=== PATIENT | female | born 1950 | race Caucasian/White ===

== ENCOUNTER 2023-01-27 04:50 | Emergency (ER) | payer OTHER ==
--- OUTSIDE RECORDS SUMMARY | 2023-01-27 04:54 | XMS REPORT | Continuity of Care Document ---
:1950 Author Organization [facility] t Address [address] [facility] [address] [place] [id number] Care Team Providers Name Role Phone Asked, No Pcp Primary Care Physician Unavailable Jose Attending Clinician Unavailable ELIO WALLACE Attending Clinician Unavailable Ike Galeano MD Attending Clinician Jose Admitting Clinician Unavailable Payers Payer Name Policy Type Policy Number Effective Date Expiration Date Yoana GRIFFITH (MEDICARE [id number] 2022 REPLACEMENT PPO) 00:00:00 Problems Condition Condition Condition Status Onset Resolution Last Treating Co mments Source Name Details Category Date Date Treatment Clinician Date Pain of Pain of Problem Active Rita right knee Right Knee 3-21 Or thope joint Joint 00:00: dic 00 Sports Medicin e Osteoarthr Osteoarthr Problem Active A zalea itis of itis of 3-21 Orthope right knee Right Knee 00:00: di c joint Joint 00 Sports Medicin e Patellofem Patellofem Problem Active A zalea oral oral 9-02 Orthope osteoarthr Osteoarthr 00:00: di c itis itis 00 Sports Medicin e Allergies, Adverse Reactions, Alerts This patient has no known allergies or adverse reactions. Social History Social Habit Start Date Stop Date Quantity Comments Source Gender identity [facility] Sexual orientation Method [facility] Sex Assigned At [birth year] [facility] 00:00:00 00:00:00 Smoking Status Start Date Stop Date Source Never Smoker Rita [facility] Tobacco smoking consumption [facility] unknown Medications Ordered Filled Start Stop Current Ordering Indication Dosage Frequency Signature Comments Components Source Medication Medication Date Date Medication? Clinician (SIG) Name Name atorvastati atorvastati No atorvastat Rita n 20 mg n 20 mg in 20 mg Ortho pe tablet TAKE tablet TAKE tablet dic 1 TABLET BY 1 TABLET BY TAKE 1 Sports MOUTH EVERY MOUTH EVERY TABLET BY Medicin DAY DAY MOUTH e EVERY DAY celecoxib celecoxib No celecoxib Rita 200 mg 200 mg 200 mg Orthope capsule capsule capsule dic TAKE 1 TAKE 1 TAKE 1 Sports CAPSULE BY CAPSULE BY CAPSULE BY Medicin MOUTH EVERY MOUTH EVERY MOUTH e DAY WITH DAY WITH EVERY DAY FOOD FOOD WITH FOOD levothyroxi levothyroxi No levothyrox Rita ne 112 mcg ne 112 mcg ine 112 Orthope tablet TAKE tablet TAKE mcg tablet dic 1 TABLET BY 1 TABLET BY TAKE 1 Sports MOUTH EVERY MOUTH EVERY TABLET BY Medicin MORNING ON MORNING ON MOUTH e AN EMPTY AN EMPTY EVERY STOMACH STOMACH MORNING ON AN EMPTY STOMACH spironolact spironolact No spironolac Rita one 25 mg one 25 mg tone 25 mg Orthope tablet TAKE tablet TAKE tablet dic 1 TABLET BY 1 TABLET BY TAKE 1 Sports MOUTH EVERY MOUTH EVERY TABLET BY Medicin DAY MOUTH e EVERY DAY Vital Signs Vital Name Observation Time Observation Value Comments Source Height 2022-11-16 00:00:00 64 [in_i] Rita O rthopedic Sports Medicine BMI (Body Mass 2022-11-16 00:00:00 30.4 kg/m2 Rita Orthopedic Index) Sports Medicine Body Weight 2022-11-16 00:00:00 177 [lb_av] Rita [facility] r[facility]opedic Sports Medicine Procedures Procedure Date / Time Performing Clinician Source Performed XR, knee, 1 or 2 view 2022-11-16 00:00:00 Rita [facility] US VASCULAR SCREENING 2022-06-29 20:21:34 Ike Galeano [facility] HEART SCAN PLUS CT HEART SCAN W 2022-06-29 19:30:43 Waleska, Ike [facility] PH[facility]IC[facility] ORDER Appendectomy Rita Orthoprae mohan Sports Medicine Carpal Tunnel Surgery Rita Ort hopedic Sports Medicine Hand Surgery Rita Orthopedi kimberlee [facility] Plan of Care Planned Activity Planned Date Details Comments Source Future Scheduled 2023-01-27 Hepatitis C screening [facility] Test 04:53:49 (procedure) [code = 828075521] Future Scheduled 2023-01-27 BREAST CANCER [facility] Test 04:53:49 SCREENING [code = BREAST CANCER SCREENING] Future Scheduled 2023-01-27 COLONOSCOPY SCREENING [facility] Test 04:53:49 [code = COLONOSCOPY SCREENING] Future Scheduled 2023-01-27 SHINGLES VACCINES (1 Met [facility] Test 04:53:49 of 2) [code = SHINGLES VACCINES (1 of 2)] Future Scheduled 2023-01-27 65+ PNEUMOCOCCAL [facility] Test 04:53:49 VACCINE (2 - PPSV23 if available, else PCV20) [code = 65+ PNEUMOCOCCAL VACCINE (2 - PPSV23 if available, else PCV20)] Future Scheduled 2023-01-27 INFLUENZA VACCINE Method [facility] Test 04:53:49 [code = INFLUENZA VACCINE] Encounters Start End Encounter Admission Attending Care Care Encounter Source Date/Time Date/Time Type Type Clinicians Facility Department ID 2022-11-16 2022-11-16 Outpatient FOG_Burke_R AOSM AO [id number] Rita 00:00:00 00:00:00 Nicole [id number] Ortho pe dic Sports Medicin e 2022-11-16 2022-11-16 Jennifer H AO [place] - Ortho Rita 00:00:00 00:00:00 Nery Bates PA: [id number] FOG_Ofc dic [facility], Medici n [address], [place] [address] , Ph. [phone] 2022-11-15 2022-11-15 Outpatient FOG_Burke_R AOSM AOSM [id number] Rita 00:00:00 00:00:00 Nicole [id number] Ortho pe dic Sports Medicin e 2022-10-26 2022-10-26 Outpatient FOG_Burke_R AOSM AOSM [id number] Rita 00:00:00 00:00:00 Nicole [id number] Ortho pe dic Sports Medicin e 2022-10-26 2022-10-26 Outpatient FOG_Burke_R AOSM AOSM [id number] Rita 00:00:00 00:00:00 Nicole [id number] Ortho pe dic Sports Medicin e 2022-06-30 2022-06-30 Outpatient RODRIGO, HILDABL MHBL [id number] MHBL 08:51:00 14:33:00 ELIO 2022-06-29 2022-06-29 [facility], 1.2.840.1 [id number] Methodi 14:17:39 23:59:00 Encounter Ike [id number] 3.430.2.7 Hospit a .3.409805 l .8 2022-06-29 2022-06-29 [facility], 1.2.840.1 [id number] Methodi 14:17:21 23:59:00 Encounter Ike [id number] 3.430.2.7 Hospit a .3.101928 l .8 2022-06-29 2022-06-29 Outpatient [facility] [id number] [place] 00:00:00 00:00:00 IKE [address] 2022-06-29 2022-06-29 Outpatient [facility] [id number] [place] 00:00:00 00:00:00 IKE [address] 2022-06-29 2022-06-29 Travel 1.2.840.1 [id number] Methodi 00:00:00 00:00:[id number] 3.430.2.7 0.2.7.3.698 Ho spita .[id number] 084.8 l .8 2022-06-07 2022-06-07 Transcribe [facility] 1.2.840.1 [id number] Methodi 00:00:00 00:00:00 Orders Ike [id number] 044 3.430.2.7 Hospit a .3.369761 l .8 Results This patient has no known results.
[2023-01-27 05:25] LABS: Absolute Lymphocytes (CBC) 0.8 K/uL (0.7-4.9); MCV 88.8 fL (80-100); MPV 7.3 fL (7.6-11.3); RBC Red Blood Cell Count 4.62 M/uL (3.86-4.86)
[2023-01-27 05:26] LABS: Protime INR 1.06
[2023-01-27] MEDS ORDERED: DIPHENHYDRAMINE 25 MG TAB/CAP ONE (05:27)
[2023-01-27] MEDS ORDERED: METOCLOPRAMIDE 10 MG/2mL INJ ONE (05:27)
[2023-01-27] MEDS ORDERED: NA CHLORIDE 0.9% 500 ML ONE (05:28)
[2023-01-27] MEDS ORDERED: KETOROLAC 30 MG/ML INJ ONE (05:28)
[2023-01-27] MEDS ORDERED: IPRATROPIUM BROM 0.5MG/2.5ML ONE (05:28)
[2023-01-27] MEDS ORDERED: PROMETHAZINE 25 MG TABLET ONE (05:28)
[2023-01-27] MEDS ORDERED: CODEINE 30MG/APAP 300MG TAB ONE (05:28)
[2023-01-27] MEDS ORDERED: ALBUTEROL 2.5 MG/3 ML NEB SOL ONE (05:28)
[2023-01-27 05:51] LABS: Bilirubin Direct 0.2 mg/dL (0-0.2); Bilirubin Indirect, Calculated 0.7 mg/dL (0.2-0.8); Bilirubin Total 0.9 mg/dL (0.2-1.0); Magnesium 2.1 mg/dL (1.6-2.4); Potassium 3.9 mEq/L (3.5-5.1); Protein, Total 7.6 g/dL (6.4-8.2); Troponin High Sensitivity 4.7 pg/mL (<58.9)
[2023-01-27 05:57] LABS: SARS-CoV-2 Antigen Rapid Res Negative (Negative)
--- NOTE | 2023-01-27 06:46 | ER ---
Nurse's Notes [facility] Name: Natalee Cornejo Age: 72 yrs Sex: Female : 1950 Arrival Date: 01/27/2023 Time: 04:50 Bed 6 Private MD: Diagnosis: Acute nasopharyngitis [common cold];Acute systemic viral illness, common cold, respiratory congestion, acute viral bronchitis Presentation: 01/27 05:16 Chief complaint: Patient states: cough, headache, nasal and chest congestion that as6 started yesterday. Coronavirus screen: At this time, the client does not indicate any symptoms associated with coronavirus-19. Ebola Screen: No symptoms or risks identified at this time. Initial Sepsis Screen: Does the patient meet any 2 criteria? No. Patient's initial sepsis screen is negative. Does the patient have a suspected source of infection? No. Patient's initial sepsis screen is negative. Risk Assessment: Do you want to hurt yourself or someone else? Patient reports no desire to harm self or others. Onset of symptoms was January 26, 2023. 05:16 Acuity: MARLEN 3 as6 05:16 Method Of Arrival: Ambulatory as6 Triage Assessment: 06:08 Headache History: Denies prior headaches. General: Appears uncomfortable. Pain: Pain rv currently is 8 out of 10 on a pain scale. Pain began suddenly. 06:08 Pain: Also complains of no other associated symptoms. rv Historical: - Allergies: 05:16 No Known Allergies; as6 - PMHx: 05:16 Hypothyroidism; Hypercholesterolemia; Anxiety; as6 - PSHx: 05:16 Appendectomy; as6 - Immunization history:: Client reports receiving the 2nd dose of the Covid vaccine. - Social history:: Smoking status: Patient denies any tobacco usage or history of. - Family history:: not pertinent. Screenin:34 [facility] ED Fall Risk Assessment (Adult) History of falling in the last 3 months, aa9 including since admission No falls in past 3 months (0 pts) Confusion or Disorientation No (0 pts) Intoxicated or Sedated No (0 pts) Impaired Gait No (0 pts) Mobility Assist Device Used No (0 pt) Altered Elimination No (0 pt) Score/Fall Risk Level 0 - 2 = Low Risk Oriented to surroundings, Maintained a safe environment, Educated pt \T\ family on fall prevention, incl call for assistance when getting out of bed. Abuse screen: Denies threats or abuse. Denies injuries from another. Nutritional screening: No deficits noted. Tuberculosis screening: No symptoms or risk factors identified. Assessment: 05:32 General: Appears comfortable, Behavior is calm, cooperative. Pain: Complains of pain in aa9 chest. Neuro: Level of Consciousness is awake, alert, obeys commands, Oriented to person, place, time, situation. Cardiovascular: Patient's skin is warm and dry. Respiratory: Reports shortness of breath on exertion cough that is non-productive. GI: No signs and/or symptoms were reported involving the gastrointestinal system. : No signs and/or symptoms were reported regarding the genitourinary system. EENT: Eyes are tearing on right outer canthus and left outer canthus Nares with drainage noted bilaterally. Derm: Skin is intact, is fragile, is thin. Vital Signs: 05:16 BP 142 / 60; Pulse 72; Resp 18 S; Temp 98.9(O); Pulse Ox 97% on R/A; Weight 77.11 kg as6 (R); Height 5 ft. 4 in. (R); Pain 3/10; 05:33 BP 137 / 63; Pulse 70; Resp 18 S; Pulse Ox 100% on Nebulizer Mask; aa9 06:04 BP 136 / 55; Pulse 73; Resp 18; Pulse Ox 97% on R/A; rv 05:16 Body Mass Index 29.18 (77.11 kg, 162.56 cm) as6 05:16 Pain Scale: Adult as6 Collins Coma Score: 05:15 Eye Response: spontaneous(4). Motor Response: obeys commands(6). Verbal Response: sp4 oriented(5). Total: 15. 06:51 Eye Response: spontaneous(4). Motor Response: obeys commands(6). Verbal Response: rv oriented(5). Total: 15. ED Course: 04:55 Patient arrived in ED. ja2 05:03 Nilton Coello MD is Attending Physician. sp4 05:14 Inserted saline lock: 20 gauge in right antecubital area, using aseptic technique. aa9 Blood collected. 05:16 Arm band placed on. as6 05:17 Jo, Kelly, RN is Primary Nurse. aa9 05:17 Basic Metabolic Panel Sent. aa 05:17 CBC with Diff Sent. aa 05:17 LFT's Sent. aa9 05:17 Magnesium Sent. 05:17 NT PRO-BNP Sent. aa9 05:19 Triage completed. as6 05:26 XRAY Chest (1 view) In Process Unspecified. EDMS 05:33 Patient has correct armband on for positive identification. Bed in low position. Call aa9 light in reach. Side rails up X 1. Adult w/ patient. Pulse ox on. NIBP on. Warm blanket given. 06:08 No provider procedures requiring assistance completed. rv 06:55 IV discontinued, intact, bleeding controlled, No redness/swelling at site. Pressure rv dressing applied. Administered Medications: 05:24 Drug: diphenhydrAMINE PO 25 mg Route: PO; aa9 06:03 Follow up: Response: No adverse reaction; Marked relief of symptoms rv 05:24 Drug: Promethazine PO 25 mg Route: PO; aa9 06:03 Follow up: Response: No adverse reaction; Marked relief of symptoms rv 05:30 Drug: metoCLOPramide IVP 10 mg Route: IVP; Site: right antecubital; aa9 06:03 Follow up: Response: No adverse reaction; Marked relief of symptoms rv 05:31 Drug: NS 0.9% IV 500 ml Route: IV; Rate: bolus; Site: right antecubital; aa9 06:03 Follow up: IV Status: Completed infusion; IV Intake: 500ml rv 05:31 Drug: Acetaminophen-Codeine PO (300 mg-30 mg) 2 tabs Route: PO; aa9 06:03 Follow up: Response: No adverse reaction; Marked relief of symptoms; RASS: Alert and rv Calm (0) 05:32 Drug: DuoNeb Nebulize (3:1) (2.5 mg - 0.5 mg) 3 ml Route: Nebulizer; aa9 06:03 Follow up: Response: No adverse reaction; Marked relief of symptoms rv 05:32 Drug: Ketorolac IVP 30 mg Route: IVP; Site: right antecubital; aa9 06:03 Follow up: Response: No adverse reaction; Marked relief of symptoms rv Medication: 06:08 VIS not applicable for this client. rv Intake: 06:03 IV: 500ml; Total: 500ml. rv Outcome: 06:46 Discharge ordered by . sp4 06:52 Discharged to home ambulatory, with family. rv 06:52 Condition: good 06:52 Discharge instructions given to patient, family, Instructed on discharge instructions, follow up and referral plans. medication usage, Demonstrated understanding of instructions, follow-up care, medications, Prescriptions given X 4. 06:55 Patient left the ED. rv Signatures: Dispatcher [employer] EDMS Kosta Schroeder RN RN rv Lucille Saab Ashby, RN RN as6 Kelly Jo RN RN aa9 Nilton Coello MD MD sp4
--- NOTE | 2023-01-27 06:46 | EDPHYS ---
Physician Documentation [facility] Name: Natalee Cornejo Age: 72 yrs Sex: Female : 1950 Arrival Date: 01/27/2023 Time: 04:50 Bed 6 Private MD: ED Physician Nilton Coello HPI: 01/27 05:03 This 72 yrs old Female presents to ER via Unassigned with complaints of sp4 Headache, Chest Pain, Breathing Difficulty, Fever, Sinus Pain. 05:15 72-year-old female with past medical history of hypothyroidism presents with acute sp4 onset of cough starting yesterday associated with difficulty breathing, chest discomfort. Subjective fever as well also nasal congestion and moderate headache. Patient states she was vaccinated for coronavirus in the last 12 months. Patient also takes paroxetine and spironolactone at home. Also atorvastatin. Just to recap patient's symptoms include cough, congestion, difficulty breathing, chest discomfort, subjective fever, and headache. . Historical: - Allergies: 05:16 No Known Allergies; as6 - PMHx: 05:16 Hypothyroidism; Hypercholesterolemia; Anxiety; as6 - PSHx: 05:16 Appendectomy; as6 - Immunization history:: Client reports receiving the 2nd dose of the Covid vaccine. - Social history:: Smoking status: Patient denies any tobacco usage or history of. - Family history:: not pertinent. ROS: 05:15 Constitutional: Negative for chills, and weight loss, positive for subjective fever, sp4 Eyes: Negative for injury, pain, redness, and discharge, ENT: Negative for injury, pain, and discharge, positive for nasal congestion Neck: Negative for injury, pain, and swelling, Cardiovascular: Negative for palpitations, and edema, positive for chest tightness Respiratory: Negative for, wheezing, and pleuritic chest pain, positive for nonproductive cough and shortness of breath Abdomen/GI: Negative for abdominal pain, nausea, vomiting, diarrhea, and constipation, Back: Negative for injury and pain, : Negative for injury, bleeding, discharge, and swelling, MS/Extremity: Negative for injury and deformity, Skin: Negative for injury, rash, and discoloration, Neuro: Negative for headache, weakness, numbness, tingling, and seizure, Psych: Negative for depression, anxiety, Allergy/Immunology: Negative for hives, rash, and allergies Endocrine: Negative for neck swelling, polydipsia, polyuria, polyphagia, and weight changes Hematologic/Lymphatic: Negative for swollen nodes, abnormal bleeding, and unusual bruising Exam: 05:15 Constitutional: This is a well developed, well nourished patient who is awake, alert, sp4 and in no acute distress. Anxious appearing nonproductive cough on exam Head/Face: Normocephalic, atraumatic. Eyes: Pupils equal round and reactive to light, extra-ocular motions intact. Lids and lashes normal. Conjunctiva and sclera are not injected. Cornea within normal limits. Periorbital areas with no swelling, redness, or edema. ENT: Nares patent. No nasal discharge, no septal abnormalities noted. Tympanic membranes are normal and external auditory canals are clear. Oropharynx with redness, no swelling, or masses, exudates, or evidence of obstruction, uvula midline. Mucous membranes moist. Bilateral pharyngeal erythema. Neck: Trachea midline, no thyromegaly or masses palpated, and no cervical lymphadenopathy. Supple, full range of motion without nuchal rigidity, or vertebral point tenderness. No Meningismus. Chest/axilla: Normal chest wall appearance and motion. Nontender with no deformity. No lesions are appreciated. Cardiovascular: Regular rate and rhythm with a normal S1 and S2. No gallops, murmurs, or rubs. Normal PMI, no JVD. No pulse deficits. Respiratory: Lungs have equal breath sounds bilaterally, clear to auscultation and percussion. No rales, rhonchi or wheezes noted. No increased work of breathing, no retractions or nasal flaring. Abdomen/GI: Soft, non-tender, with normal bowel sounds. No distension or tympany. No guarding or rebound. No evidence of tenderness throughout. Back: No spinal tenderness. No costovertebral tenderness. Skin: Warm, dry with normal turgor. Normal color with no rashes, no lesions, and no evidence of cellulitis. MS/ Extremity: Pulses equal, no cyanosis. Neurovascular intact. Full, normal range of motion. Neuro: Awake and alert, GCS 15, oriented to person, place, time, and situation. Cranial nerves II-XII grossly intact. Motor strength 5/5 in all extremities. Sensory grossly intact. Psych: Awake, alert, with orientation to person, place and time. Behavior, mood, and affect are within normal limits 05:21 ECG was reviewed by the Attending Physician. EKG reveals normal sinus rhythm with a sp4 rate of 73, EKG time 0505, no ectopy, normal EKG with Vital Signs: 05:16 BP 142 / 60; Pulse 72; Resp 18 S; Temp 98.9(O); Pulse Ox 97% on R/A; Weight 77.11 kg as6 (R); Height 5 ft. 4 in. (R); Pain 3/10; 05:33 BP 137 / 63; Pulse 70; Resp 18 S; Pulse Ox 100% on Nebulizer Mask; aa9 06:04 BP 136 / 55; Pulse 73; Resp 18; Pulse Ox 97% on R/A; rv 05:16 Body Mass Index 29.18 (77.11 kg, 162.56 cm) as6 05:16 Pain Scale: Adult as6 Petra Coma Score: 05:15 Eye Response: spontaneous(4). Motor Response: obeys commands(6). Verbal Response: sp4 oriented(5). Total: 15. 06:51 Eye Response: spontaneous(4). Motor Response: obeys commands(6). Verbal Response: rv oriented(5). Total: 15. MDM: 05:15 Differential diagnosis: cluster headache, migraine, otitis, sinusitis, tension sp4 headache, vasomotor headache, Acute headache secondary to viral illness. Data reviewed: vital signs, nurses notes, old medical records, lab test result(s), cardiac enzymes, CBC, electrolytes, Flu: negative hepatic panel, urinalysis, EKG, radiologic studies, plain films. Consideration of Admission/Observation Escalation of care including admission/observation considered. 05:21 Patient medically screened. sp4 06:43 ED course: Patient was given certain medicines to relieve congestion cough and body sp4 aches and headache. Patient states she feels better.. She will be advised to go home and get some rest. Bedrest advised for the next 3 days, fluid intake at home liberally. Phenergan as needed for nausea, Tylenol as needed for body aches, dextromethorphan as needed for cough, Benadryl before bedtime to help with congestion. . 06:51 ED course: Chest x-ray is clear today EKG is unremarkable, and labs today are sp4 unremarkable. Negative COVID and negative influenza. 01/27 05:03 Order name: Basic Metabolic Panel; Complete Time: 06:39 sp4 01/27 05:03 Order name: CBC with Diff; Complete Time: 06:39 sp4 01/27 05:03 Order name: LFT's; Complete Time: 06:39 sp4 01/27 05:03 Order name: Magnesium; Complete Time: 06:39 sp4 01/27 05:03 Order name: NT PRO-BNP; Complete Time: 06:39 sp4 01/27 05:03 Order name: PT-INR; Complete Time: 06:39 sp4 01/27 05:03 Order name: Troponin HS; Complete Time: 06:39 sp4 01/27 05:03 Order name: Lipase; Complete Time: 06:39 sp4 01/27 05:10 Order name: SARS RAPID; Complete Time: 06:39 sp4 01/27 05:10 Order name: Influenza Screen (a \T\ B); Complete Time: 06:39 sp4 01/27 05:03 Order name: XRAY Chest (1 view) sp4 01/27 05:03 Order name: EKG; Complete Time: 05:04 sp4 01/27 05:03 Order name: Cardiac monitoring; Complete Time: 05:17 sp4 01/27 05:03 Order name: EKG - Nurse/Tech; Complete Time: 05:17 sp4 01/27 05:03 Order name: IV Saline Lock; Complete Time: 05:17 sp4 01/27 05:03 Order name: Labs collected and sent; Complete Time: 05:17 sp4 01/27 05:03 Order name: O2 Per Protocol; Complete Time: 05:17 sp4 01/27 05:03 Order name: O2 Sat Monitoring; Complete Time: 05:17 sp4 EC:21 Rate is 73 beats/min. Rhythm is regular, Normal Sinus Rhythm. QRS [place] is Normal. MO sp4 interval is normal. QRS interval is normal. QT interval is normal. No Q waves. T waves are Normal. No ST changes noted. Clinical impression: No evidence of ischemia. Interpreted by me. Administered Medications: 05:24 Drug: diphenhydrAMINE PO 25 mg Route: PO; aa9 06:03 Follow up: Response: No adverse reaction; Marked relief of symptoms rv 05:24 Drug: Promethazine PO 25 mg Route: PO; aa9 06:03 Follow up: Response: No adverse reaction; Marked relief of symptoms rv 05:30 Drug: metoCLOPramide IVP 10 mg Route: IVP; Site: right antecubital; aa9 06:03 Follow up: Response: No adverse reaction; Marked relief of symptoms rv 05:31 Drug: NS 0.9% IV 500 ml Route: IV; Rate: bolus; Site: right antecubital; aa9 06:03 Follow up: IV Status: Completed infusion; IV Intake: 500ml rv 05:31 Drug: Acetaminophen-Codeine PO (300 mg-30 mg) 2 tabs Route: PO; aa9 06:03 Follow up: Response: No adverse reaction; Marked relief of symptoms; RASS: Alert and rv Calm (0) 05:32 Drug: DuoNeb Nebulize (3:1) (2.5 mg - 0.5 mg) 3 ml Route: Nebulizer; aa9 06:03 Follow up: Response: No adverse reaction; Marked relief of symptoms rv 05:32 Drug: Ketorolac IVP 30 mg Route: IVP; Site: right antecubital; aa9 06:03 Follow up: Response: No adverse reaction; Marked relief of symptoms rv Disposition Summary: 01/27/23 06:46 Discharge Ordered Location: Home sp4 Problem: new sp4 Symptoms: have improved sp4 Condition: Stable sp4 Diagnosis - Acute nasopharyngitis [common cold] sp4 - Acute systemic viral illness, common cold, respiratory congestion, acute viral sp4 bronchitis Followup: sp4 - With: Private Physician - When: 7 - 10 days - Reason: Recheck today's complaints Discharge Instructions: - Discharge Summary Sheet sp4 - Cough, Adult, Lrrc-dy-Snyc sp4 Prescriptions: - dextromethorphan polistirex 30 mg/5 mL Oral suspension, extended release 12 hr - take 10 milliliter by ORAL route every 12 hours as needed for cough; 89 sp4 milliliter; Refills: 0, Product Selection Permitted - Albuterol Sulfate 2.5 mg /3 mL (0.083 %) Inhalation Solution for Nebulization - inhale 1 unit by NEBULIZATION route every 4 hours As needed Dispense 50 sp4 Respules or 2 boxes, dispense with nebulizer and adult mask.; 50 unit; Refills: 0, Product Selection Permitted - promethazine 25 mg Oral Tablet - take 1 tablet by ORAL route every 8 hours As needed PRN nausea; 30 tablet; sp4 Refills: 0, Product Selection Permitted Signatures: Dispatcher [employer] Mike Adler RN RN as6 Kelly Jo RN RN aa9 Nilton Coello MD MD sp4 Kosta Schroeder RN rv
[2023-01-27 07:32] VITALS: TEMP 98.2
[2023-01-27 07:33] VITALS: BP 128/64
[2023-01-27 07:34] VITALS: O2SAT 94
--- NOTE | 2023-01-27 12:06 | EKG ---
Test Date: 2023-01-27 Test Time: 05:05:19 Occupational Medicine Officer: RV MEASUREMENT RESULTS: Intervals: Rate: 73 HI: 128 QRSD: 90 QT: 384 QTc: 423 [place]: P: 50 HI: 128 QRS: 31 T: 58 INTERPRETIVE STATEMENTS: Normal sinus rhythm Normal ECG Compared to ECG 02/04/2005 15:30:00 Sinus bradycardia no longer present Electronically Signed On 01-27-23 12:05:49 CDT by Jacob Leung
--- NOTE | 2023-01-27 13:53 | RAD REPORT ---
EXAM DESCRIPTION: RAD - Chest Single View - 01/27/2023 5:24 am CLINICAL HISTORY: The patient is 72 years old and is Female; CHEST PAIN TECHNIQUE: Single view of the chest. COMPARISON: No relevant prior studies available. FINDINGS: Lungs: No pulmonary vascular congestion or consolidation. Pleural space: Unremarkable. No pneumothorax. Heart: Unremarkable. No cardiomegaly. Mediastinum: Unremarkable. Bones/joints: Degenerative changes in the shoulders. Vertebral osteophytes. No acute rib fracture visualized. Upper abdomen: No free air in the visualized upper abdomen. IMPRESSION: No acute cardiopulmonary process identified. Electronically signed by: Lashon Srinivasan MD 01/27/2023 5:40 AM CDT Due to temporary technical issues with the PACS/Fluency reporting system, reports are being signed by the in house radiologists without review as a courtesy to insure prompt reporting. The interpreting radiologist is fully responsible for the content of the report.
== END 2023-01-27 06:55 | disposition home or self-care (01) ==
LOC: ER 04:50
DX: J20.8 Acute bronchitis due to other specified organisms (principal); J00 Acute nasopharyngitis [common cold]; Z20.822 Contact with and (suspected) exposure to COVID-19
CPT/HCPCS: 96361; 93005; 85025; 80048; 36415; 83735; 85610; 80076; 84484; 83690; 83880; 87804 ×2; 71045; 94640; 96375; 96374; 99285; 87811; Q0169; J2765; J7613; J7644; J7040

== ENCOUNTER 2025-01-11 08:56 | Day surgery (SDC) | payer OTHER ==
[2025-01-09 16:08] LABS: Absolute Eosinophils 0.1 K/uL (0-0.5); Absolute Lymphocytes (CBC) 1.8 K/uL (0.7-4.9); Absolute Monocytes 0.5 K/uL (0.1-1.3); Absolute Neutrophil 4.1 K/uL (1.8-8.0); Basophils % 0.7 % (0-1.3); Eosinophils % 1.6 % (0-4.4); Hematocrit 39.8 % (36.0-45.0); Hemoglobin 13.6 g/dL (12.0-15.0); MCH 30.6 pg (27.0-35.0); MCHC 34.3 g/dL (32.0-36.0); MCV 89.2 fL (80-100); MPV 8.1 fL (7.6-11.3); Monocytes % 8.3 % (3.3-12.3); Neutrophils % 62.4 % (41.7-73.7); Platelets 184 thou/uL (152-406); RBC Red Blood Cell Count 4.47 M/uL (3.86-4.86); Red Cell Distribution Width 13.9 % (12.1-15.2)
[2025-01-09 16:25] LABS: Anion Gap 7.6 mEq/L (5.0-15.0); Potassium 4.6 mEq/L (3.5-5.1)
[2025-01-11] MEDS ORDERED: LIDOCAINE 2% MPF 5 ML VIAL ONE (09:53)
[2025-01-11] MEDS ORDERED: propofoL 200 MG/20 ML VIAL IV ONE (09:53)
[2025-01-11] MEDS ORDERED: ONDANSETRON 4 MG/2 ML VIAL ONE (09:53)
[2025-01-11] MEDS ORDERED: FENTANYL CITR 100 MCG/2 ML ONE (09:53)
[2025-01-11] MEDS: Ringers Lactate 1,000 ML IV ONE (10:02)
[2025-01-11] MEDS: LIDOCAINE HCL/EPINEPHRINE 20 ML MDV ONE (10:17)
[2025-01-11] MEDS: CEFAZOLIN SODIUM 1 GM/VIAL ONE (10:17)
[2025-01-11] MEDS ORDERED: EPHEDRINE SULF 50 MG/ML VIAL ONE (11:07)
--- NOTE | 2025-01-11 11:39 | P.OP ---
Preoperative diagnosis: RIGHT Hip Cyst Postoperative diagnosis: RIGHT Hip Cyst Primary procedure: Wide Excision of RIGHT Hip Cyst Anesthesia: GETA + Local Estimated blood loss: <5cc Specimen: RIGHT Hip Cyst Findings: ~ 1cm cyst Complications: None Transferred to: Recovery Room Condition: Good
[2025-01-11 11:53] VITALS: TEMP 97
--- NOTE | 2025-01-11 12:04 | OP ---
Date of Procedure: 01/11/2025 Surgeon: Edvin Arnold MD, Preoperative Diagnosis: Right hip cyst. Postoperative Diagnosis: Right hip cyst. Procedure Performed: Wide local excision of right hip cyst. Anesthesia: General endotracheal plus local, 0.25% Marcaine. Estimated Blood Loss: 5 cc. Specimens: Right hip cyst. Findings: Approximately 1 cm cyst of the right hip, which is recurrent. Complications: None. Disposition: The patient was transferred to recovery room in good condition. Procedure In Detail: After informed consent was obtained, patient was brought to the operating room, prepped and draped in the usual sterile fashion. After adequate anesthesia was achieved, I made an elliptical incision circumferentially around the area of the right hip cyst, which was previously dem arcated. I dissected down through the skin with a 15 blade and ultimately removed the cyst in its en tirety using electrocautery and sent off for pathologic examination. The area was copiously irrigate d. Hemostasis was achieved with minimal electrocautery. Irrigated once again until completely dry. Then, the deep dermal plane was closed using a 3-0 Vicryl suture and skin was closed with a 4-0 [place] cryl in a running fashion. Dermabond was placed over top. The patient tolerated the procedure witho ut incident or complication, transferred to PACU in good condition. All counts were correct at the end of the case. GAYE/ANGELITAL Voice ID: [id number] Report ID: [id number]
[2025-01-11 12:42] VITALS: BP 118/51; O2SAT 97
--- NOTE | 2025-01-14 17:01 | EKG ---
Test Date: 2025-01-09 Test Time: 15:49:17 [employer]: DELROY MEASUREMENT RESULTS: Intervals: Rate: 67 MT: 130 QRSD: 86 QT: 404 QTc: 426 [place]: P: 63 MT: 130 QRS: 50 T: 74 INTERPRETIVE STATEMENTS: Sinus rhythm with occasional premature ventricular complexes Otherwise normal ECG Compared to ECG 01/27/2023 05:05:19 Ventricular premature complex(es) now present Electronically Signed On 01-14-25 16:55:57 CDT by Vikas Shaver
== END 2025-01-11 12:40 | disposition home or self-care (01) ==
LOC: OR 08:56
PROVIDERS: ATTEND Surgery
PROC: 0HBHXZZ Excision of Right Upper Leg Skin, External Approach (ICD-10-PCS; principal; 2025-01-11 11:00)
DX: L72.0 Epidermal cyst (principal)
CPT/HCPCS: 93005; 85025; 80048; 36415; 88304; 11401; J2704; J2003; J3010; J2405; J7120; J0690